=== PATIENT | male | born 2000 | race Two or more races ===

== ENCOUNTER 2025-02-21 17:27 | Emergency (ER) | payer OTHER, SELFPAY ==
[2025-02-21 17:35] VITALS: BP 133/81; PULSE 106; RESP 16; TEMP 37.3; O2SAT 98
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
--- OUTSIDE RECORDS SUMMARY | 2025-02-21 18:46 | XMS_ITS | Clinical Summary ---
Author Organization [facility] Address [address] [place] [address] Care Team Providers Care Facility Practice Specialist Name Role Phone John Paul Mcneil PA-C Primary Care Provider Source Comments You are receiving this document as you are listed as the primary care provider,follow-up provider, or the patient has been referred to you for consultation.This is in compliance with the Medicare and[facility] EHR Incentive Program,which states Providers who transition their patient to another setting of careor provider of care or refers their patient to another provider of care shouldprovide summary care record for each transition of care or referral. [facility] Allergies No known active allergies Social History Tobacco Use Types Packs/Day Years Used Date Smoking Tobacco: Every Day Alcohol Use Standard Drinks/Week Comments Yes 0 (1 standard drink = 0.6 oz pur e alcohol) Sex and Gender Information Value Date Recorded Sex Assigned at Not on file Legal Sex Male 10:44 PM CDT Gender Identity Not on file Sexual Orientation Not on file Last Filed Vital Signs Vital Sign Reading Time Taken Comments Blood Pressure 123/72 01/17/2021 12:00 AM CDT Pulse 90 01/17/2021 12:00 AM CDT Temperature - - Respiratory Rate 16 01/17/2021 12:00 AM CDT Oxygen Saturation 99% 01/17/2021 12:00 AM CDT Inhaled Oxygen Concentration - - Weight - - Height - - Body Mass Index - - Plan of Treatment Health Maintenance Due Date Last Done Comments Hep C Screening (Preventive Services) 1998 HPV Vaccine (1 - Male 3-dose series) 2013 HIV Screening (Preventive Services) 2014 Adult Preventive Visit 2016 DTaP/Tdap/Td Vaccine (1 - Tdap) 2017 HepB Vaccine (1) 2017 Pneumococcal Vaccine (1 of 2 - PCV) 2017 COVID-19 Vaccine (1 - 2023-2 5 season) 2025 Influenza Vaccine (#1) 2025 Zoster/Shingles Vaccine (1 of 2) 2048 HepA Vaccine Aged Out No longer eligi ble based on patient's age to complete this topic Hib Vaccine Aged Out No longer eligi ble based on patient's age to complete this topic IPV (Polio) Vaccine Aged Out No longe r eligible based on patient's age to complete this topic MCV4 Vaccine Aged Out No longer eligi ble based on patient's age to complete this topic Meningococcal B Vaccine Aged Out No l onger eligible based on patient's age to complete this topic Care Teams Facility Practice Specialist Relationship Specialty Start Date End Date John Paul Mcneil PA-C PCP - General Physician Home Care Consultant 01/17/21
--- OUTSIDE RECORDS SUMMARY | 2025-02-21 18:46 | XMS_ITS | Clinical Summary ---
Author Organization [facility] Address [address] [place] [id number] Care Team Providers Care Dance Instructor Name Role Phone Pavel Hahn Primary Care Provider Unavailabl e Allergies No known active allergies Medications famotidine (PEPCID) 20 mg tablet Take 20 mg by mouth two times daily. Active busPIRone (BUSPAR) 10 mg tablet Take 10 mg by mouth two times daily. 3 Active atorvastatin (LIPITOR) 20 mg tablet Take 20 mg by mouth at bedtime. Active albuterol HFA (PRO-AIR; VENTOLIN; PROVENTIL) 90 mcg/actuation inhaler Inhale 2 Puffs by mouth every 6 hours if needed for Shortness Of Breath. 3 Active metFORMIN (GLUCOPHAGE) 1,000 mg tablet Take 1,000 mg by mouth two times daily with meals. Active hydrOXYzine pamoate (VISTARIL) 25 mg capsuleIndicati ons:Severe episode of recurrent major depressive disorder, without psychotic features (HC) Take 1 Capsule (25 mg) by mouth every 6 hours if needed for Anxiety. 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 Depressive disorder 01/25/2014 Overview (09/12/2023): Depression NOS Persistent insomnia 09/24/2012 Attention-deficit hyperactiv ity disorder, predominantly hyperactive type 07/07/2010 Overview (09/12/2023): ADHD Immunizations Immunization Administration Dates Next Due Influenza, IIV4 09/13/2023 Family History Medical History Relation Name Comments Depression Brother 1 No Known Problems Brother 2 Depression Father Depression Mother Relation Name Status Comments Brother 1 Alive Brother 2 Alive Father Alive Mother Alive Social History Tobacco Use Types Packs/Day Years Used Date Smoking Tobacco: Former Passive Smoke Exposure: Past Smokeless Tobacco: Never Tobacco Cessation:Counseling Given: Yes Alcohol Use Standard Drinks/Week Comments Yes 6 (1 standard drink = 0.6 oz pur e alcohol) PHQ-2 Answer Date Recorded PHQ-2 TOTAL SCORE 2 11/08/2023 Social Connections Answer Date Recorded Do you often feel lonely or isolated from those around you? 4 09/18/2023 Alcohol Use Answer Date Recorded How often do you have a drink containing alcohol ? 2 09/12/2023 How many drinks containing a lcohol do you have on a typical day when you are drinking? 2 09/12/2023 How often do you have five or more drinks on one occasion? 2 09/12/2023 Financial Resource Strain Answer Date R ecorded Difficulty of Paying Living Expenses 3 09/18/2023 Difficulty of Paying Living Expenses Not on file 09/18/2023 Food Insecurity Answer Date Recorded Do you worry your food will run out before you are able to buy more? 1 09/18/2023 Transportation Needs Answer Date Record ed Does lack of transportation keep you from medica l appointments? 1 09/18/2023 Does lack of transportation keep you from work, meetings or getting things that you need? 1 09/18/2023 Housing Stability Answer Date Recorded What is your housing situation today? 1 09/18/2023 Interpersonal Safety Answer Date Record ed Are you being hit, kicked, p ushed or yelled at (see row info)? No 05/26/2024 Interpersonal Safety Abuse 12 - 18 Not on file 05/26/2024 Interpersonal Safety Ambulatory Vulnerability No t on file 05/26/2024 Utilities Answer Date Recorded Do you have trouble paying f or utilities (for example, heat, electricity, water, phone)? 1 09/18/2023 Sex and Gender Information Value Date Recorded Sex Assigned at Not on file Legal Sex Male 1:04 AM CDT Gender Identity Not on file Sexual Orientation Not on file Obstetrics History Last Filed Vital Signs Vital Sign Reading Time Taken Comments Blood Pressure 108/77 05/26/2024 7:49 AM MANAGED CARE COORDINATOR Pulse 110 05/26/2024 7:49 AM MANAGED CARE COORDINATOR Temperature 36.4 C (97.5 F) 05/26/2024 7:49 AM MANAGED CARE COORDINATOR Respiratory Rate 18 05/26/2024 7:49 AM MANAGED CARE COORDINATOR Oxygen Saturation 98% 05/26/2024 7:49 AM MANAGED CARE COORDINATOR Inhaled Oxygen Concentration - - Weight 81.6 kg (180 lb) 05/26/2024 12:52 AM MANAGED CARE COORDINATOR Height 162.6 cm (5' 4) 05/26/2024 12:52 AM MANAGED CARE COORDINATOR Body Mass Index 30.9 05/26/2024 12:52 AM MANAGED CARE COORDINATOR Plan of Treatment Health Maintenance Due Date Last Done Comments Tetanus booster 2009 HIV for age 15-65 2013 HPV series for age 9-45 (1 - Male 3-dose series) 2013 BMI (ht and wt on same day) for age 18+ 2016 Hepatitis C screening for ag e 18-79 2016 Hepatitis B series for 19+ ( 1 of 3 - 19+ 3-dose series) 2017 Pneumococcal series for age 6-49 (1 of 2 - PCV) 2017 Depression screening for age 12+ 11/07/2024 11/08/2023, 11/01/2023, 09/12/2023 Influenza Vaccine (#1) 2025 09/13/2023 RSV vaccine for adults or (1 - 1-dose 75+ series) 2073 COVID-19 vaccine series Completed 10/02/19 25, 05/14/2023, 05/04/2022, Additional history exists Insurance MEDICARE PART A HB ONLY MEDICARE PART B HB ONLY [facility] MEDICARE PB ONLY [facility] Advance Directives * Full Code (Latest Code Status on File) Date Activated Date Inactivated Comments 09/12/2023 11:13 AM 09/20/2023 3:35 PM Question Answer Comments Code Status Discussion: Other Care Teams Dance Instructor Relationship Specialty Start Date End Date Pavel Hahn PCP - General Emergency Medicine 09/12/23
--- OUTSIDE RECORDS SUMMARY | 2025-02-21 19:46 | XMS_ITS | CCD ---
Author Organization Unknown Care Team Providers Care Electronic Wirer Name Role Phone Reinforced Concrete Inspector, [place] Primary Care Provider Unava ilable Unavailable Chronic Care Management Unavaila ble Summary Purpose DataExchange Insurance Providers Payer name Policy type / Coverage type Covered green party ID Effective Begin Date Effective End Date Medicare [place] Part B [id number] Unknown Unknown [employer] Medicare Part B [id number] Unknown Unknown Family History Family History data not found Medication Administered No Medication Administered data Reason For Visit No Reason For Visit data
== END 2025-02-21 19:15 | disposition home or self-care (01) ==
PROVIDERS: Emergency Provider Student in an Organized Health Care Education/Training Program
DX: T20.10XA Burn of first degree of head, face, and neck, unspecified site, initial encounter (principal); X10.2XXA Contact with fats and cooking oils, initial encounter
CPT/HCPCS: 99282